=== PATIENT | female | born 1995 | race Caucasian/White ===

== ENCOUNTER 2017-12-06 18:00 | Emergency (ER) | payer BC ==
[~2017-12-06] VITALS: Ht 165.1 cm; Wt 73.7 kg
[2017-12-06 18:17] VITALS: BP 109/76
[2017-12-06] MEDS ORDERED: DEXAMETHASONE 4 MG TABLET PO ONE (19:30)
[2017-12-06] MEDS ORDERED: DEXAMETHASONE 4 MG TABLET ONE (19:50)
== END 2017-12-06 20:21 | disposition home or self-care (01) ==
LOC: ED 20:15
DX: L50.9 Urticaria, unspecified (principal)
CPT/HCPCS: 82962; 99282

== ENCOUNTER 2018-01-17 17:47 | Emergency (ER) | payer BC ==
[~2018-01-17] VITALS: Ht 162.6 cm; Wt 75.4 kg
[2018-01-17 17:48] VITALS: BP 127/83
[2018-01-17] MEDS ORDERED: FEXO60TA24 PO (18:20)
[2018-01-17 18:38] LABS: ANION GAP 10 mmol/L (5-15); CALCIUM 9.2 mg/dL (8.5-10.1); CHLORIDE 107 mmol/L (98-107); CREATININE 0.61 mg/dL (0.55-1.02)
[2018-01-17 18:40] LABS: MD YES; MEAN CORPUSCULAR HEMOGLOBIN 27.1 pg (27.0-34.8); MEAN CORPUSCULAR HGB CONC 33.2 g/dL (32.4-35.8); MEAN CORPUSCULAR VOLUME 81.8 fL (80-100); MEAN PLATELET VOLUME 10.5 fL (7.4-10.4); PLATELET COUNT 265 x10^3/uL (130-400); RED BLOOD COUNT 4.34 x10^6/uL (3.82-5.3); RED CELL DISTRIBUTION WIDTH 15.6 % (9.6-15.2)
[2018-01-17 18:41] LABS: BAND#(MANUAL) 1.36 x10^3/uL; BANDS%(MANUAL) 10 % (0-7); LYMPH#(MANUAL) 0.82 x10^3/uL (1-6.1); LYMPHS% (MANUAL) 6 % (22-44); MONOS#(MANUAL) 0.41 x10^3/uL (0.3-2.7); MONOS% (MANUAL) 3 % (2-9); SEG#(MANUAL) 11.02 x10^3/uL (1.8-8); SEGS% (MANUAL) 81 % (42-75)
[2018-01-17 18:42] LABS: <PLATELET ESTIMATE> ADEQUATE; <RBC MORPHOLOGY> NORMAL; GIANT PLATELETS 1+; TOXIC GRAN 1+
[2018-01-17 18:43] LABS: CULTURE INDICATED? YES; MICROSCOPIC INDICATED
[2018-01-18] MEDS ORDERED: IBUP100O32 PO (18:04)
[2018-01-18] MEDS ORDERED: IBUP-1222 PO (18:05)
[2018-01-18] MEDS ORDERED: DOCU-131 PO (18:06)
== END 2018-01-17 19:18 | disposition other institution (70) ==
LOC: ED 19:17
DX: O60.03 Preterm labor without delivery, third trimester (principal); O26.893 Other specified pregnancy related conditions, third trimester; Z3A.37 37 weeks gestation of pregnancy
CPT/HCPCS: 36415; 76830; 80048; 81001; 82040; 84703; 85025; 87086; 99285

== ENCOUNTER 2018-01-17 19:34 | Inpatient (IN) | payer BC ==
[~2018-01-17] VITALS: Ht 162.6 cm; Wt 70.5 kg
[~2018-01-17 19:34] MED LIST: FEXO60TA24 PO
[2018-01-17] MEDS ORDERED: OXYTOCIN 30U/ 0.9% NaCL 500ML 500 ML IV ONE (19:57)
[2018-01-17] MEDS ORDERED: D5%-LACTATED RINGERS 1,000 ML IV SCH (19:57)
[2018-01-17] MEDS ORDERED: ONDANSETRON 2MG/ML, 2ML IVPush PRN (20:00)
[2018-01-17] MEDS ORDERED: FENTANYL PF 100 MCG/2ML IV PRN (20:00)
[2018-01-17] MEDS ORDERED: FENTANYL PF 100 MCG/2ML IVPush PRN (20:00)
[2018-01-17] MEDS ORDERED: CALCIUM CARBONATE 500 MG TAB.CHEW PO PRN (20:00)
[2018-01-17] MEDS ORDERED: OXYTOCIN 30U/ 0.9% NaCL 500ML 500 ML ONE (20:02)
[2018-01-17] MEDS ORDERED: MISOPROSTOL 200 MCG TABLET ONE (20:02)
[2018-01-17] MEDS ORDERED: NEWBORN KIT ONE (20:02)
[2018-01-17 20:23] LABS: MEAN CORPUSCULAR HEMOGLOBIN 27.4 pg (27.0-34.8); MEAN CORPUSCULAR HGB CONC 33.3 g/dL (32.4-35.8); MEAN CORPUSCULAR VOLUME 82.3 fL (80-100); MEAN PLATELET VOLUME 10.2 fL (7.4-10.4); PLATELET COUNT 279 x10^3/uL (130-400); RED BLOOD COUNT 4.15 x10^6/uL (3.82-5.3); RED CELL DISTRIBUTION WIDTH 15.6 % (9.6-15.2)
[2018-01-17] MEDS ORDERED: PLEASE ENTER HEIGHT AND WEIGHT MC SCH (20:30)
[2018-01-17 20:40] LABS: AMPHETAMINE SCREEN, URINE Negative (Negative); BARBITURATE SCREEN, URINE Negative (Negative); BENZODIAZEPINE SCREEN, URINE Negative (Negative); CANNABINOID SCREEN, URINE Negative (Negative); COCAINE SCREEN, URINE Negative (Negative); METHADONE SCREEN, URINE Negative (Negative); OPIATE SCREEN, URINE Negative (Negative)
[2018-01-17 20:42] LABS: MD YES
[2018-01-17 20:43] LABS: BAND#(MANUAL) 0.32 x10^3/uL; BANDS%(MANUAL) 2 % (0-7); EOS#(MANUAL) 0.16 x10^3/uL (0.0-0.8); EOS% (MANUAL) 1 % (1-7); LYMPH#(MANUAL) 1.12 x10^3/uL (1-6.1); LYMPHS% (MANUAL) 7 % (22-44); MONOS#(MANUAL) 0.48 x10^3/uL (0.3-2.7); MONOS% (MANUAL) 3 % (2-9); SEG#(MANUAL) 13.92 x10^3/uL (1.8-8); SEGS% (MANUAL) 87 % (42-75)
[2018-01-17 20:44] LABS: <PLATELET ESTIMATE> ADEQUATE; <RBC MORPHOLOGY> NORMAL; GIANT PLATELETS 1+; TOXIC GRAN 1+
[2018-01-17] MEDS ORDERED: LIDOCAINE-MPF 2% ,5ML ONE (20:46)
[2018-01-17] MEDS ORDERED: FENTANYL/BUPIV./NS/PF 250 ML EPIDCONT ONE (20:46)
[2018-01-17] MEDS ORDERED: BUPIVACAINE 0.25% ONE (20:49)
[2018-01-17] MEDS: LACTATED RINGERS 1,000 ML IV SCH (20:50)
[2018-01-17] MEDS ORDERED: FENTANYL/BUPIV./NS/PF 250 ML EPIDCONT SCH (21:18)
[2018-01-17] MEDS ORDERED: LACTATED RINGERS 1,000 ML IV SCH (21:18)
[2018-01-17] MEDS ORDERED: LACTATED RINGERS 1,000 ML IVBOLUS PRN (21:30)
[2018-01-17] MEDS ORDERED: EPHEDRINE 50 MG/ML, 1ML IVPush PRN (21:30)
[2018-01-17] MEDS ORDERED: NALOXONE 0.4 MG/ML, 1ML IVPush PRN (21:30)
[2018-01-18] MEDS: LACTATED RINGERS 1,000 ML IV SCH (02:23)
[2018-01-18] MEDS ORDERED: OXYTOCIN 30U/ 0.9% NaCL 500ML 500 ML ONE (05:27)
[2018-01-18] MEDS ORDERED: LIDOCAINE-MPF 2% ,5ML ONE ×4 (05:29→05:31)
[2018-01-18] MEDS ORDERED: LIDOCAINE-MPF 1%, 5ML ONE (05:42)
[2018-01-18] MEDS ORDERED: IBUPROFEN 600 MG TABLET ONE (06:31)
[2018-01-18] MEDS: OXYTOCIN 30U/ 0.9% NaCL 500ML 500 ML IV SCH ×2 (06:42→15:15)
[2018-01-18] MEDS ORDERED: IBUPROFEN 600 MG TABLET PO PRN (07:00)
[2018-01-18] MEDS ORDERED: DIPH,PERTUSS(ACELL),TET VAC/PF NC IM-VACC PRN (07:00)
[2018-01-18] MEDS ORDERED: OXYcodone/APAP 5/325MG TABLET PO PRN ×2 (07:00)
[2018-01-18] MEDS ORDERED: RHOGAM FROM BLOOD BANK 1 NOTE EA IM/IV ONE (07:00)
[2018-01-18] MEDS ORDERED: CALCIUM CARBONATE 500 MG TAB.CHEW PO PRN (07:00)
[2018-01-18] MEDS ORDERED: CARBOPROST TROMETHAMINE 250 MCG/ML, 1ML IM PRN (07:00)
[2018-01-18] MEDS ORDERED: ACETAMINOPHEN 325 MG TABLET PO PRN ×2 (07:00)
[2018-01-18] MEDS ORDERED: GLYCERIN ADULT SUPP PR PRN (07:00)
[2018-01-18] MEDS ORDERED: METOCLOPRAMIDE 5 MG/ML, 2ML IV PRN (07:00)
[2018-01-18] MEDS ORDERED: MISOPROSTOL 200 MCG TABLET PR PRN (07:00)
[2018-01-18] MEDS ORDERED: METHYLERGONOVINE 0.2 MG/ML IM PRN (07:00)
[2018-01-18] MEDS ORDERED: MAGNESIUM HYDROXIDE 8%, 30ML UDC PO PRN (07:00)
[2018-01-18] MEDS ORDERED: DOCUSATE 100 MG CAPSULE PO PRN (07:00)
[2018-01-18] MEDS ORDERED: ONDANSETRON 2MG/ML, 2ML IV PRN (07:00)
[2018-01-18] MEDS ORDERED: BISACODYL 10 MG SUPP PR PRN (07:00)
[2018-01-18] MEDS ORDERED: PRENATAL VIT/IRON/FA 1 EACH TABLET PO SCH (09:00)
[2018-01-18 09:30] VITALS: BP 124/72
[2018-01-18 13:50] VITALS: BP 118/70
[2018-01-18 14:52] LABS: MEAN CORPUSCULAR HEMOGLOBIN 26.9 pg (27.0-34.8); MEAN CORPUSCULAR HGB CONC 32.7 g/dL (32.4-35.8); MEAN CORPUSCULAR VOLUME 82.1 fL (80-100); MEAN PLATELET VOLUME 10.5 fL (7.4-10.4); PLATELET COUNT 226 x10^3/uL (130-400); RED BLOOD COUNT 3.38 x10^6/uL (3.82-5.3); RED CELL DISTRIBUTION WIDTH 15.8 % (9.6-15.2)
[2018-01-18 15:14] LABS: LYMPHOCYTES % (AUTO) 10 % (22-44); NEUTROPHILS % (AUTO) 84 % (42-75)
[2018-01-18 15:15] LABS: BASOPHILS # (AUTO) 0.06 x10^3/uL (0-0.3); BASOPHILS % (AUTO) 0 % (0-1); EOSINOPHILS % (AUTO) 0 % (1-7); LYMPHOCYTES # (AUTO) 1.66 x10^3/uL (1-6.1); MONOCYTES # (AUTO) 1.09 x10^3/uL (0-1.4); MONOCYTES % (AUTO) 6 % (2-9); NEUTROPHILS # (AUTO) 14.79 x10^3/uL (1.8-8.0)
[2018-01-18 15:18] LABS: MD NO
[2018-01-18 15:19] LABS: HEMOGRAM NOTE RECHECKED
[2018-01-18] MEDS ORDERED: IBUP100O32 PO (18:04)
[2018-01-18] MEDS ORDERED: IBUP-1222 PO (18:05)
[2018-01-18] MEDS ORDERED: DOCU-131 PO (18:06)
== END 2018-01-18 19:30 | disposition home or self-care (01) | DRG 775 ==
LOC: LDOP 19:34 → LDIP 20:05 → 2NW 01-18 08:47 → 3NW 01-18 10:25
PROVIDERS: ADMIT Obstetrics & Gynecology; ATTEND Obstetrics & Gynecology
PROC: 10E0XZZ Delivery of Products of Conception, External Approach (ICD-10-PCS; principal; 2018-01-18)
PROC: 0KQM0ZZ Repair Perineum Muscle, Open Approach (ICD-10-PCS; 2018-01-18)
PROC: 3E0R3BZ Introduction of Anesthetic Agent into Spinal Canal, Percutaneous Approach (ICD-10-PCS; 2018-01-18)
PROC: 00HU33Z Insertion of Infusion Device into Spinal Canal, Percutaneous Approach (ICD-10-PCS; 2018-01-18)
PROC: 30233S1 Transfusion of Nonautologous Globulin into Peripheral Vein, Percutaneous Approach (ICD-10-PCS; 2018-01-18)
DX: O70.1 Second degree perineal laceration during delivery (principal); Z37.0 Single live birth; O09.33 Supervision of pregnancy with insufficient antenatal care, third trimester; Z3A.37 37 weeks gestation of pregnancy; Z23 Encounter for immunization
CPT/HCPCS: 36415; 80074; 80307; 82803; 85025; 85461; 86592; 86706; 86708; 86762; 86850; 86900; 87081; 87340; 87806; J2790; J3490; G0475; J2590; J3010; J7120; J7121